=== PATIENT | female | born 1930 | race Caucasian/White ===

== ENCOUNTER 2017-02-26 18:57 | Emergency (ER) | payer OTHER, MEDICARE ==
[~2017-02-26 18:57] MED LIST: ASPIRIN81 M1 PO; BUSPAR7.5 MG PO; CALCIUM WITH V1 EAC1 PO; CALCIUM500 M4 PO; CIPRO500 MG PO; CYMBALTA30 MG PO; DILTIAZEM ER60 MG PO; FLONASE ALLERG9.9 ML BOTH NARES; HYDROXYZINE HCL25 MG PO; LORAZEPAM0.5 MG PO; MOTRIN600 MG PO; MULTIVITAMIN1 EAC2 PO; POLYETHYLENE GL17 GM PO; PREMARIN0.625 MG PO; RANITIDINE HCL300 MG PO; REFRESH OPTIVE10 M1 BOTH EYES; SLEEP AID25 M1 PO; TYLENOL WITH C1 EACH PO; VITAMIN C1000 MG PO; VITAMIN D31000 UNI2 PO
[2017-02-26 19:12] LABS: EOSINOPHIL (%) 0.6 % (0-5); EOSINOPHIL COUNT 0.1 K/uL (0-0.3); HEMATOCRIT 31.4 % (36.0-46.0); IMMATURE GRANULOCYTE (%) 0.6 % (0.0-0.7); IMMATURE GRANULOCYTE COUNT 0.1 K/uL; INSTRUMENT ABS NEUTROPHIL CT 10.1 K/uL; LYMPHOCYTE COUNT 1.3 K/uL (1.0-2.8); MCH 27.6 PG (29.0-34.0); MCHC 32.2 G/DL (30.0-36.0); MCV 85.8 FL (83-99); MEAN PLAT.VOLUME 9.8 uM^3 (9.5-12.4); MONOCYTE (%) 5.1 % (3-12); MONOCYTE COUNT 0.6 K/uL (0-0.8); NEUTROPHIL COUNT 10.1 K/uL (1.8-6.4); PLATELET COUNT 362 K/uL (156-360); RBC DIS.WIDTH-CV 13.1 % (11.8-14.6); RBC DIS.WIDTH-SD 40.8 % (39-53); RED BLOOD COUNT 3.66 M/uL (3.80-5.20); WHITE BLOOD COUNT 12.2 K/uL (4.1-10.2)
[2017-02-26 19:26] LABS: AMYLASE 84 IU/L (1-118); CHLORIDE 105 mEq/L (99-109); POTASSIUM 4.3 mEq/L (3.7-5.4); SODIUM 141 mEq/L (136-147)
[2017-02-26 19:28] LABS: GLUCOSE 137 mg/dL (70-99)
[2017-02-26 19:29] LABS: ANION GAP 12 MEQ/L (2-14)
[2017-02-26 19:31] LABS: SERUM ETHYL ALCOHOL < 10 mg/dL
[2017-02-26 19:32] LABS: GFR ESTIMATE (CALCULATED) > 59 mL/min/
[2017-02-26 19:33] LABS: UREA NITROGEN (BUN) 24 mg/dL (9-23)
[2017-02-26 19:35] LABS: CREATINE KINASE 140 IU/L (1-294); LIPASE 50 U/L (1.0-51.0); TOTAL CK 140 IU/L (1-294)
[2017-02-26 19:41] LABS: CK-MB 2.4 ng/mL (0.0-4.9)
[2017-02-26 20:44] LABS: ADD MIUA? YES; BILIRUBIN NEGATIVE; BLOOD NEGATIVE; COLOR STRAW ((YELLOW)); GLUCOSE (STRIP) NEGATIVE; KETONES NEGATIVE; LEUKOCYTES SMALL; NITRITE NEGATIVE; PROTEIN (STRIP) NEGATIVE; UROBILINOGEN 0.2 MG/DL (0.2-1.0)
[2017-02-26 21:35] LABS: BACTERIA NONE SEEN /HPF; EPITHELIAL CELLS RARE /HPF; MUCUS NONE SEEN /LPF; RED BLOOD CELLS 0-5 /HPF (0-5); UCUL ADDED? NO; WHITE BLOOD CELLS 0-5 /HPF (0-5)
[2017-02-26 21:38] LABS: AMPHETAMINE NEGATIVE (500 ng/mL); BARBITURATES NEGATIVE (200 ng/mL); BENZODIAZEPINES NEGATIVE (150 ng/mL); COCAINE NEGATIVE (150 ng/mL); INTERNAL CONTROLS VALID? YES; METHADONE NEGATIVE (200 ng/mL); METHAMPHETAMINE NEGATIVE (500 ng/mL); OPIATES (MORPHINE) NEGATIVE (100 ng/mL); OXYCODONE NEGATIVE (100 ng/mL); PHENCYCLIDINE NEGATIVE (25 ng/mL); PROPOXYPHENE NEGATIVE (300 ng/mL); THC CANNABINOIDS NEGATIVE (50 ng/mL); TRICYCLIC ANTIDEPRESSANTS NEGATIVE (300 ng/mL)
== END 2017-02-26 23:29 | disposition short-term general hospital (02) ==
LOC: EME 18:57 → TRA 18:57
PROVIDERS: Emergency Medicine
DX: S02.40EA Zygomatic fracture, right side, initial encounter for closed fracture (principal); S02.31XA Fracture of orbital floor, right side, initial encounter for closed fracture; S02.40CA Maxillary fracture, right side, initial encounter for closed fracture; W10.9XXA Fall (on) (from) unspecified stairs and steps, initial encounter; Y92.008 Other place in unspecified non-institutional (private) residence as the place of occurrence of the external cause; M79.604 Pain in right leg; M54.9 Dorsalgia, unspecified; I10 Essential (primary) hypertension; K21.9 Gastro-esophageal reflux disease without esophagitis; F41.9 Anxiety disorder, unspecified
CPT/HCPCS: 70450; 70486; 71010; 71260; 72125; 72128; 72132; 73100; 74177; 80048; 81003; 82150; 82550; 82553; 83690; 85025; 86850; 86900; 86901; 93005; 99281; 99285; G0480; J2060; J3010